=== PATIENT | male | born 1955 | race Two or more races ===

== ENCOUNTER 2024-01-10 08:28 | Emergency (ER) | payer OTHER ==
[~2024-01-10] VITALS: Ht 167.6 cm; Wt 70.6 kg
[2024-01-10 09:27] VITALS: BP 167/79; PULSE 70; RESP 18; TEMP 97.9; O2SAT 99
[2024-01-10] MEDS ORDERED: METH-1182 PO (10:17)
[2024-01-10] MEDS ORDERED: IBUP-1454 PO (10:17)
[2024-01-10] MEDS ORDERED: CYCL-837 PO (10:18)
== END 2024-01-10 10:49 | disposition home or self-care (01) ==
LOC: ER 08:28
DX: M25.512 Pain in left shoulder (principal); M25.511 Pain in right shoulder; M54.9 Dorsalgia, unspecified; M54.2 Cervicalgia; Z79.1 Long term (current) use of non-steroidal anti-inflammatories (NSAID); Z79.899 Other long term (current) drug therapy; Z88.0 Allergy status to penicillin; V89.2XXA Person injured in unspecified motor-vehicle accident, traffic, initial encounter; Y93.89 Activity, other specified; Y92.410 Unspecified street and highway as the place of occurrence of the external cause; Y99.8 Other external cause status